=== PATIENT | female | born 1980 | race African-American/Black ===

== ENCOUNTER 2016-07-26 16:46 | Emergency (ER) | payer MEDICAID ==
[~2016-07-26] VITALS: Ht 162.6 cm; Wt 99.0 kg
[~2016-07-26 16:46] MED LIST: AMOX500T2 PO; DICL50 PO; DILA8TAB4 PO; LISI-363 PO
[2016-07-26 16:48] VITALS: BP 225/111; PULSE 90; RESP 20; TEMP 98.8; O2SAT 98
--- NOTE | 2016-07-26 16:58 | PD ---
Physical Exam Date Seen by Provider: July 26, 2016 Time Seen by Provider: 16:57 Narrative Pt presents with headache, nausea, photophobia since last night. Hx of HTN took meds this morning. Bp markedly elevated, awaiting bed placement. Data Data Last Documented VS Vital Signs Date Time Temp Pulse Resp B/P Pulse Ox O2 Delivery O2 Flow Rate FiO2 07/26/16 16:48 98.8 90 20 225/111 98 Room Air MDM Supervised Visit with ZULEIKA: Shelli Yusuf July 26, 2016 16:58
--- NOTE | 2016-07-26 17:50 | PD ---
HPI Chief Complaint: Headache Time Seen by Provider: 17:50 Travel History International Travel<30 days: No Contact w/Intl Traveler<30days: No Traveled to known affect area: No History of Present Illness HPI 35-year-old female with history of hypertension, currently not on her medications for the last 3 weeks, presents to the emergency department for evaluation of a headache. This is generalized and last seen over the last 2-3 days. Patient woke up this morning and was nauseous. Denies any focal deficit or weakness. Denies HSP or tightness. No difficulty breathing. Patient has no other symptoms to report. PFSH Past Medical History Cardiovascular Problems: Yes Diminished Hearing: No Gastrointestinal Disorders: No Hypertension: Yes Musculoskeletal: Yes (back pain) ?: Not : 6 Para: 6 Miscarriage: 0 : 0 Tubal Ligation: Yes (2003) Past Surgical History Cholecystectomy: Yes Gynecologic Surgery: Yes (TUBAL) Other Surgery: Yes Social History Alcohol Use: No Tobacco Use: No Substance Use: No Allergies-Medications (Allergen,Severity, Reaction): Coded Allergies: Darvocet-N 100 (Verified Allergy, Severe, SEVERE ITCHING, 07/26/16) Reported Meds & Prescriptions Reported Meds & Active Scripts Active Amlodipine (Amlodipine Besylate) 5 Mg Tab 5 Mg PO DAILY Review of Systems Except as stated in HPI: all other systems reviewed are Neg Physical Exam Narrative GENERAL: Well-nourished female patient, ambulatory and in no acute distress SKIN: Focused skin assessment warm/dry. HEAD: Atraumatic. Normocephalic. EYES: Pupils equal and round. No scleral icterus. No injection or drainage. ENT: No nasal bleeding or discharge. Mucous membranes pink and moist. NECK: Trachea midline. No JVD. CARDIOVASCULAR: Regular rate and rhythm. No murmur appreciated. RESPIRATORY: No accessory muscle use. Clear to auscultation. Breath sounds equal bilaterally. GASTROINTESTINAL: Abdomen soft, non-tender, nondistended. Hepatic and splenic margins not palpable. MUSCULOSKELETAL: No obvious deformities. No clubbing. No cyanosis. No edema. NEUROLOGICAL: Awake and alert. No obvious cranial nerve deficits. Motor grossly within normal limits. Normal speech. PSYCHIATRIC: Appropriate mood and affect; insight and judgment normal. Data Data Last Documented VS Vital Signs Date Time Temp Pulse Resp B/P Pulse Ox O2 Delivery O2 Flow Rate FiO2 07/26/16 19:19 84 18 166/95 98 Room Air 07/26/16 16:48 98.8 Orders Iv Access Insert/Monitor (07/26/16 17:51) Complete Blood Count With Diff (07/26/16 17:51) Basic Metabolic Panel (Bmp) (07/26/16 17:51) Urinalysis - C+S If Indicated (07/26/16 17:51) Labetalol Inj (Trandate Inj) (07/26/16 18:00) Labetalol Inj (Trandate Inj) (07/26/16 18:00) Amlodipine (Norvasc) (07/26/16 18:15) Ct Brain W/O Iv Contrast(Rout) (07/26/16 ) Labs Laboratory Tests Test 07/26/16 07/26/16 18:10 19:00 White Blood Count 7.7 TH/MM3 Red Blood Count 4.41 MIL/MM3 Hemoglobin 12.6 GM/DL Hematocrit 38.4 % Mean Corpuscular Volume 87.1 FL Mean Corpuscular Hemoglobin 28.5 PG Mean Corpuscular Hemoglobin 32.7 % Concent Red Cell Distribution Width 12.7 % Platelet Count 240 TH/MM3 Mean Platelet Volume 9.3 FL Neutrophils (%) (Auto) 45.4 % Lymphocytes (%) (Auto) 45.2 % Monocytes (%) (Auto) 6.5 % Eosinophils (%) (Auto) 2.1 % Basophils (%) (Auto) 0.8 % Neutrophils # (Auto) 3.5 TH/MM3 Lymphocytes # (Auto) 3.5 TH/MM3 Monocytes # (Auto) 0.5 TH/MM3 Eosinophils # (Auto) 0.2 TH/MM3 Basophils # (Auto) 0.1 TH/MM3 CBC Comment DIFF FINAL Differential Comment Sodium Level 139 MEQ/L Potassium Level 3.5 MEQ/L Chloride Level 103 MEQ/L Carbon Dioxide Level 32.0 MEQ/L Anion Gap 4 MEQ/L Blood Urea Nitrogen 9 MG/DL Creatinine 0.86 MG/DL Estimat Glomerular Filtration 90 ML/MIN Rate Random Glucose 192 MG/DL Calcium Level 8.2 MG/DL Urine Color YELLOW Urine Turbidity CLEAR Urine pH 6.5 Urine Specific [place] 1.019 Urine Protein NEG mg/dL Urine Glucose (UA) 300 mg/dL Urine Ketones NEG mg/dL Urine Occult Blood NEG Urine Nitrite NEG Urine Bilirubin NEG Urine Urobilinogen LESS THAN 2.0 MG/DL Urine Leukocyte Esterase NEG Urine RBC LESS THAN 1 /hpf Urine WBC 1 /hpf Urine Squamous Epithelial 1 /hpf Cells Urine Mucus FEW /lpf Microscopic Urinalysis Comment CULT NOT INDICATED MDM Medical Decision Making Medical Screen Exam Complete: Yes Emergency Medical Condition: Yes Medical Record Reviewed: Yes Differential Diagnosis Hypertension essential versus hypertension urgency versus intracranial hemorrhage versus aneurysm versus a day, tension versus cluster versus migraine Narrative Course 35-year-old female presents to emergency department for evaluation of a headache. Patient has significantly elevated blood pressure. Upon recheck it has decreased some but is still quite elevated. CT imaging of the brain is without acute intracranial normality. CBC and BMP are without acute concern. Urinalysis with 300 glucosuria. Patient is given Norvasc 5 by mouth. She'll be discharged home to follow-up with primary care provider. She is given a one- month prescription for amlodipine. She agrees to return immediately with any acute worsening of symptoms. Diagnosis Primary Impression: Hypertension Qualified Code: I10 - Essential hypertension Additional Impression: Head ache Qualified Code: R51 - Acute nonintractable headache, unspecified headache type Referrals: Primary Care Physician Patient Instructions: General Instructions, Hypertension (ED) Additional Instructions: Follow-up with a primary care provider Norvasc is free at [facility] Return immediately to the emergency department with any acute worsening symptoms Med/Other Pt SpecificInfo: Prescription(s) given Scripts Amlodipine 5 Mg Tab5 Mg PO DAILY #30 TAB Ref 0 Prov:Emelia Church 07/26/16 Disposition: 01 DISCHARGE HOME Condition: Stable Emelia Church July 26, 2016 17:50
[2016-07-26 17:54] VITALS: BP 183/88; PULSE 85; RESP 19; O2SAT 97
[2016-07-26] MEDS ORDERED: LABETALOL HCL 100 MG/20 ML VIAL IV PUSH ONE ×2 (18:00)
[2016-07-26] MEDS ORDERED: amLODIPine BESYLATE 5 MG TAB PO ONE (18:15)
[2016-07-26 18:28] LABS: AUTOMATED NEUTROPHIL # 3.5 TH/MM3 (1.8-7.7); BASOPHIL # 0.1 TH/MM3 (0-0.2); BASOPHIL % 0.8 % (0.0-2.0); EOSINOPHIL # 0.2 TH/MM3 (0-0.4); EOSINOPHIL % 2.1 % (0.0-4.0); HEMATOCRIT 38.4 % (35.0-46.0); HEMO FLAGS DIFF FINAL; LYMPH % 45.2 % (9.0-44.0); LYMPHOCYTE # 3.5 TH/MM3 (1.0-4.8); MEAN CELL VOLUME 87.1 FL (80.0-100.0); MEAN CORPUSCULAR HEMOGLOBIN 28.5 PG (27.0-34.0); MEAN CORPUSCULAR HGB CONC 32.7 % (32.0-36.0); MONO % 6.5 % (0.0-8.0); NEUT % 45.4 % (16.0-70.0); PLATELET COUNT 240 TH/MM3 (150-450); RED BLOOD COUNT 4.41 MIL/MM3 (4.00-5.30); RED CELL DISTRIBUTION WIDTH 12.7 % (11.6-17.2); WHITE BLOOD COUNT 7.7 TH/MM3 (4.0-11.0)
[2016-07-26 18:42] LABS: POTASSIUM 3.5 MEQ/L (3.5-5.1)
[2016-07-26 19:19] VITALS: BP 166/95; PULSE 84; RESP 18; O2SAT 98
[2016-07-26 19:28] LABS: BLOOD, URINE NEG (NEG); COMMENT (UR) CULT NOT INDICATED; CULTURE IF INDICATED CULT NOT INDICATED; GLUCOSE,URINE 300 mg/dL (NEG); KETONE, URINE NEG (NEG); MUCUS URINE FEW /lpf (OCC); NITRITE,URINE NEG (NEG); PH, URINE 6.5 (5.0-8.5); SQUAMOUS EPITHELIAL CELL URINE 1 /hpf (0-5); URINE COLOR YELLOW (YELLW/STRAW)
--- NOTE | 2016-07-26 19:44 | RADRPT ---
EXAM DATE/TIME: 07/26/2016 19:30 [facility] COMPARISON: No previous studies available for comparison. INDICATIONS : Cephalgia with nausea vomiting. RADIATION DOSE: 46.82 CTDIvol (mGy) MEDICAL HISTORY : Hypertension. SURGICAL HISTORY : None. ENCOUNTER: Initial ACUITY: 2 days PAIN SCALE: 5/10 LOCATION: cranial TECHNIQUE: Multiple contiguous axial images were obtained of the head. Using automated exposure control and adj ustment of the mA and/or kV according to patient size, radiation dose was kept as low as reasonably a chievable to obtain optimal diagnostic quality images. FINDINGS: CEREBRUM: The ventricles are normal for age. No evidence of midline shift, mass lesion, hemorrhage or acute in farction. No extra-axial fluid collections are seen. POSTERIOR FOSSA: The cerebellum and brainstem are intact. The 4th ventricle is midline. The cerebellopontine angle i s unremarkable. EXTRACRANIAL: The visualized portion of the orbits is intact. There is sinus disease present involving the visualiz ed maxillary antrum on the right. SKULL: The calvaria is intact. No evidence of skull fracture. CONCLUSION: No acute cranial findings. Sinus disease. Stefan Cason MD on July 26, 2016 at 19:41 Board Certified Radiologist. This report was verified electronically.
[2016-07-26] MEDS ORDERED: AMLO5TAB2 PO (19:57)
[2016-08-08] MEDS ORDERED: GABA300C5 PO (10:54)
[2016-08-08] MEDS ORDERED: IBUP400T20 PO (10:54)
[2016-08-08] MEDS ORDERED: HYDR8TAB PO (10:54)
[2016-08-08] MEDS ORDERED: AMBI10TA PO (10:54)
[2016-08-08] MEDS ORDERED: AMLO5TAB2 PO (11:40)
[2016-08-22] MEDS ORDERED: LISI-515 PO (09:18)
[2016-08-22] MEDS ORDERED: AMLO5TAB2 PO (09:18)
[2016-08-29] MEDS ORDERED: CIPR-9 PO (12:33)
[2016-09-04] MEDS ORDERED: METR500T10 PO (14:40)
[2016-09-04] MEDS ORDERED: DIFL150T PO (14:40)
[2016-09-06] MEDS ORDERED: METR500T10 PO (12:51)
[2016-09-06] MEDS ORDERED: DIFL150T PO (12:51)
[2016-09-10] MEDS ORDERED: DIFL150T PO (10:53)
[2016-09-10] MEDS ORDERED: METR500T10 PO (10:53)
[2016-09-10] MEDS ORDERED: ATOR20TA15 PO (11:17)
[2016-09-10] MEDS ORDERED: METF1000 PO (11:17)
[2016-09-10] MEDS ORDERED: BLOOD GLUCOSE M1 KIT (11:20)
== END 2016-07-26 21:11 | disposition home or self-care (01) ==
LOC: NEPD 16:46
DX: R51 Headache (principal); I10 Essential (primary) hypertension
CPT/HCPCS: 70450; 80048; 81001; 85025